=== PATIENT | female | born 1950 | race Caucasian/White ===

== ENCOUNTER → 2017-04-25 | Outpatient (CLI) | payer OTHER, MEDICARE | LOC: BMCIMAGING 13:07 | PROVIDERS: ATTEND Internal Medicine | DX: Z12.31 Encounter for screening mammogram for malignant neoplasm of breast (principal); Z13.820 Encounter for screening for osteoporosis; M81.0 Age-related osteoporosis without current pathological fracture; Z78.0 Asymptomatic menopausal state ==

== ENCOUNTER → 2017-08-22 | Outpatient (CLI) | payer OTHER, MEDICARE | LOC: BMCIMAGING 09:01 | PROVIDERS: ATTEND Family Medicine | DX: S59.291A Other physeal fracture of lower end of radius, right arm, initial encounter for closed fracture (principal); S59.292A Other physeal fracture of lower end of radius, left arm, initial encounter for closed fracture ==

== ENCOUNTER → 2017-09-05 | Outpatient (CLI) | payer OTHER, MEDICARE | LOC: BMCIMAGING 15:47 | PROVIDERS: ATTEND Orthopaedic Surgery Hand Surgery | DX: S52.502D Unspecified fracture of the lower end of left radius, subsequent encounter for closed fracture with routine healing (principal); S52.612D Displaced fracture of left ulna styloid process, subsequent encounter for closed fracture with routine healing ==

== ENCOUNTER → 2017-10-04 | Outpatient (CLI) | payer OTHER, MEDICARE | LOC: BMCIMAGING 09:14 | PROVIDERS: ATTEND Orthopaedic Surgery Hand Surgery | DX: S52.572D Other intraarticular fracture of lower end of left radius, subsequent encounter for closed fracture with routine healing (principal) ==

== ENCOUNTER → 2018-04-23 | Outpatient (CLI) | payer OTHER, MEDICARE | LOC: BMCIMAGING 10:21 | PROVIDERS: ATTEND Internal Medicine | DX: N63.10 Unspecified lump in the right breast, unspecified quadrant (principal) ==